=== PATIENT | female | born 1985 | race Caucasian/White ===

== ENCOUNTER 2018-05-26 08:34 | Emergency (ER) | payer MEDICAID, OTHER ==
[~2018-05-26] VITALS: Ht 185.4 cm; Wt 118.7 kg
[~2018-05-26 08:34] MED LIST: DIVA-18 PO; OCD PO
[2018-05-26] MEDS ORDERED: ACETAMINOPHEN 325MG TABLET PO ONE (09:30)
[2018-05-26 11:26] VITALS: BP 126/80
== END 2018-05-26 11:29 | disposition home or self-care (01) ==
LOC: ER 08:34
DX: M25.461 Effusion, right knee (principal); Z88.0 Allergy status to penicillin; Z88.6 Allergy status to analgesic agent; Z88.1 Allergy status to other antibiotic agents; Z79.899 Other long term (current) drug therapy; M41.9 Scoliosis, unspecified
CPT/HCPCS: 73562; 81025; 99284; L1830